=== PATIENT | male | born 1975 | race African-American/Black ===

== ENCOUNTER 2018-05-07 08:23 | Emergency (ER) | payer MEDICAID, OTHER ==
[~2018-05-07] VITALS: Ht 185.4 cm; Wt 108.0 kg
[~2018-05-07 08:23] MED LIST: AMBIEN5 MG ORAL; KEFLEX500 MG ORAL; MEDROL DOSEPAK4 MG ORAL; NKM
[2018-05-07] MEDS ORDERED: TRAMADOL HCL150 MG ORAL (08:35)
--- NOTE | 2018-05-07 09:10 | Emergency Room Report ---
History of Present Illness General Chief Complaint: Lower Extremity Injury Source: Patient Present Illness HPI Patient presents with nontraumatic left ankle pain for greater than one week. He has a strenuous job with climbing up ladders. He's unaware of any injury. There has been swelling there. There is pain when he walks. He denies any fevers, rash or redness weakness. It's worse when he tries to weight-bear. He denies any major medical problems and is not taking any medications for this. Pain rated 8/10, aching, not radiating, worse with weight-bear. No numbness. He is unaware of prior injuries. No calf tenderness, leg edema, dyspnea, hemoptysis. No h/o gout or diuretics. Allergies: Coded Allergies: No Known Allergies (Unverified , 07/09/13) Patient History Past Medical History: see triage record Social History: Denies: smoking Social History Narrative works telecom Reviewed Nursing Documentation: PMH: Agreed; PSxH: Agreed Nursing Documentation-PMH Past Medical History: No Stated History Review of Systems Constitutional: Reports: see HPI Respiratory: Reports: see HPI Cardiovascular: Denies: chest pain Gastrointestinal: Denies: nausea Musculoskeletal: Reports: see HPI Skin: Reports: see HPI Neurological: Reports: see HPI Hematologic/Lymphatic: Denies: blood clots, easy bleeding Physical Exam Vital Signs Date Time Temp Pulse Resp B/P (MAP) Pulse Ox O2 Delivery O2 Flow Rate FiO2 05/07/18 08:28 98.2 68 16 148/98 96 Room Air 98.2 Sp02 EP Interpretation: reviewed, normal General Appearance: well appearing, no apparent distress Head: normocephalic, atraumatic ENT: hearing grossly normal, normal voice Neck: full range of motion, supple Respiratory: no respiratory distress, speaking full sentences Cardiovascular #1: regular rate, rhythm Cardiovascular #2: 2+ dorsalis pedis (L) Gastrointestinal: normal inspection Musculoskeletal: swelling, other - The ankle was not hot. Ligaments are stable. Fifth metatarsal bone is nontender. Neurologic: alert, motor strength/tone normal, sensory intact, normal gait Psychiatric: mood/affect normal Skin: no rash Medical Decision Making Diagnostic Impression: Primary Impression: Ankle pain, left Qualified Codes: M25.572 - Pain in left ankle and joints of left foot Additional Impressions: Osteoarth NOS-ankle Renal insufficiency ER Course Patient presents with nontraumatic left ankle pain. Differential includes gout , pseudogout, unappreciated strain or sprain, osteoarthritis. By my exam septic joint is excluded. X-rays are indicated as well as labs including uric acid and sedimentation rate. The patient will be treated with Motrin. Ankle without fx. Labs with yocasta CBC, sed rate, uric acid. CMP with renal insufficiency. Slightly elevated CK. Discussed labs with patient who states he was told in past about kidney problems. States taking creatine and protein shakes. Improved pain. Sumit applied by RN. Tension and position excellent with some relief. Neurovasc checked by me and normal. Patient stable for outpatient observation and treatment. Labs Test 05/07/18 09:15 White Blood Count 10.7 K/UL (4.8-10.8) Red Blood Count 5.07 M/UL (4.70-6.10) Hemoglobin 15.3 G/DL (14.2-18.0) Hematocrit 45.3 % (42.0-52.0) Mean Corpuscular Volume 89 FL (80-99) Mean Corpuscular Hemoglobin 30.2 PG (27.0-31.0) Mean Corpuscular Hemoglobin Concent 33.8 G/DL (32.0-36.0) Red Cell Distribution Width 10.4 % (11.6-14.8) Platelet Count 213 K/UL (150-450) Mean Platelet Volume 7.9 FL (6.5-10.1) Neutrophils (%) (Auto) 68.6 % (45.0-75.0) Lymphocytes (%) (Auto) 21.5 % (20.0-45.0) Monocytes (%) (Auto) 5.0 % (1.0-10.0) Eosinophils (%) (Auto) 4.3 % (0.0-3.0) Basophils (%) (Auto) 0.7 % (0.0-2.0) Erythrocyte Sedimentation Rate 10 MM/HR (0-15) Urine Color Pale yellow Urine Appearance Clear Urine pH 6 (4.5-8.0) Urine Specific [place] 1.015 (1.005-1.035) Urine Protein 2+ (NEGATIVE) Urine Glucose (UA) Negative (NEGATIVE) Urine Ketones Negative (NEGATIVE) Urine Occult Blood Negative (NEGATIVE) Urine Nitrite Negative (NEGATIVE) Urine Bilirubin Negative (NEGATIVE) Urine Urobilinogen Normal MG/DL (0.0-1.0) Urine Leukocyte Esterase Negative (NEGATIVE) Urine RBC 0-2 /HPF (0 - 0) Urine WBC 0 /HPF (0 - 0) Urine Squamous Epithelial Cells None /LPF (NONE/OCC) Urine Bacteria Occasional /HPF (NONE) Sodium Level 139 MMOL/L (136-145) Potassium Level 3.9 MMOL/L (3.5-5.1) Chloride Level 103 MMOL/L (98-107) Carbon Dioxide Level 30 MMOL/L (21-32) Anion Gap 6 mmol/L (5-15) Blood Urea Nitrogen 25 mg/dL (7-18) Creatinine 1.9 MG/DL (0.55-1.30) Estimat Glomerular Filtration Rate 46.7 mL/min (>60) Glucose Level 100 MG/DL (74-106) Uric Acid 6.6 MG/DL (2.6-7.2) Calcium Level 8.8 MG/DL (8.5-10.1) Total Bilirubin 0.5 MG/DL (0.2-1.0) Aspartate Amino Transf (AST/SGOT) 40 U/L (15-37) Alanine Aminotransferase (ALT/SGPT) 73 U/L (12-78) Alkaline Phosphatase 76 U/L (46-116) Total Creatine Kinase 617 U/L (26-308) Total Protein 7.3 G/DL (6.4-8.2) Albumin 3.6 G/DL (3.4-5.0) Globulin 3.7 g/dL Albumin/Globulin Ratio 1.0 (1.0-2.7) Other X-Ray Diagnostic Results Other X-Ray Diagnostic Results : X-Ray ordered: ankle # of Views/Limited Vs Complete: 3 View Indication: Other EP Interpretation: Yes Interpretation: no dislocation, no soft tissue swelling, no fractures, other - djd Impression: No acute disease Electronically Signed by: Guillermo Newman MD Last Vital Signs Date Time Temp Pulse Resp B/P (MAP) Pulse Ox O2 Delivery O2 Flow Rate FiO2 05/07/18 12:21 98.2 16 148/98 96 Room Air 98.2 05/07/18 08:28 68 Status: improved Disposition: HOME, SELF-CARE Condition: Improved Scripts Ibuprofen* (MOTRIN*) 600 Mg Tablet 600 MG ORAL Q8H PRN for For Pain, #16 TAB 0 Refills Prov: Guillermo Newman M.D. 05/07/18 Acetaminophen (Tylenol) 325 Mg Tablet 650 MG ORAL Q6H PRN for Prn Pain/Headache/Temp > 101, #30 TAB 0 Refills Prov: Guillermo Newman M.D. 05/07/18 Guillermo Newman M.D. May 07, 2018 09:10
[2018-05-07 09:52] LABS: APPEARANCE,URINE CLEAR; BILIRUBIN, URINE NEGATIVE (NEGATIVE); COLOR,URINE PALE YELLOW; GLUCOSE, URINE (UA) NEGATIVE (NEGATIVE); KETONES,URINE NEGATIVE (NEGATIVE); LEUKOCYTE ESTERASE ,URINE NEGATIVE (NEGATIVE); NITRITE,URINE NEGATIVE (NEGATIVE); PH,URINE 6 (4.5-8.0); PROTEIN,URINE 2+ (NEGATIVE); UROBILINOGEN,URINE NORMAL MG/DL (0.0-1.0)
[2018-05-07 09:53] LABS: BASOPHILS % (AUTO) 0.7 % (0.0-2.0); EOSINOPHILS % (AUTO) 4.3 % (0.0-3.0); HEMATOCRIT 45.3 % (42.0-52.0); HEMOGLOBIN 15.3 G/DL (14.2-18.0); LYMPHOCYTES % (AUTO) 21.5 % (20.0-45.0); MEAN CORPUSCULAR VOLUME 89 FL (80-99); NEUTROPHILS % (AUTO) 68.6 % (45.0-75.0); PLATELET COUNT 213 K/UL (150-450); RED BLOOD COUNT 5.07 M/UL (4.70-6.10); RED CELL DISTRIBUTION WIDTH 10.4 % (11.6-14.8); WHITE BLOOD COUNT 10.7 K/UL (4.8-10.8)
[2018-05-07 10:14] LABS: ALANINE AMINOTRANSFERASE 73 U/L (12-78); ALBUMIN 3.6 G/DL (3.4-5.0); ALKALINE PHOSPHATASE 76 U/L (46-116); ANION GAP 6 mmol/L (5-15); ASPARTATE AMINO TRANSFERASE 40 U/L (15-37); BILIRUBIN,TOTAL 0.5 MG/DL (0.2-1.0); BLOOD UREA NITROGEN 25 mg/dL (7-18); CALCIUM 8.8 MG/DL (8.5-10.1); CARBON DIOXIDE 30 MMOL/L (21-32); CHLORIDE 103 MMOL/L (98-107); CREATINE KINASE 617 U/L (26-308); CREATININE 1.9 MG/DL (0.55-1.30); POTASSIUM 3.9 MMOL/L (3.5-5.1); SODIUM 139 MMOL/L (136-145)
--- NOTE | 2018-05-07 10:43 | Diagnostic Imaging Report ---
Indication: Left ankle pain for one week Technique: 3 views of the left ankle Comparison: none Findings: No acute fractures. No dislocations. There is soft tissue swelling over the lateral malleolus. The joint spaces are preserved. There are mild degenerative proliferative changes of the distal tibia. Impression: No acute process
[2018-05-07] MEDS ORDERED: TYLENOL325 MG ORAL (11:18)
[2018-05-07] MEDS ORDERED: IBUPROFEN600 MG ORAL (11:18)
[2018-05-07 12:21] VITALS: BP 148/98
== END 2018-05-07 12:00 | disposition home or self-care (01) ==
LOC: EMR 09:09
DX: M19.072 Primary osteoarthritis, left ankle and foot (principal); N28.9 Disorder of kidney and ureter, unspecified
CPT/HCPCS: 36415; 80053; 81003; 82550; 84550; 85025; 85651; 99283

== ENCOUNTER 2018-10-07 22:05 | Emergency (ER) | payer OTHER ==
[~2018-10-07] VITALS: Ht 185.4 cm; Wt 106.6 kg
[~2018-10-07 22:05] MED LIST changes: +IBUPROFEN600 MG ORAL; +TRAMADOL HCL150 MG ORAL; +TYLENOL325 MG ORAL
[2018-10-07 22:19] VITALS: BP 145/91
[2018-10-07] MEDS ORDERED: Acetaminophen 500mg (ES) tab ORAL ONE (22:30)
--- NOTE | 2018-10-07 22:33 | Emergency Room Report ---
History of Present Illness General Chief Complaint: Pain Source: Patient Present Illness HPI Patient presents with one month of right shoulder pain. In addition to that he has numbness over the thumb and index finger on the back of his hand. This is worsened when he bends his wrist in the ulnar direction. The pain is severe at night and prevents him from sleeping. He's tried taking tramadol however this is hasn't helped. The patient was seen recently with some renal insufficiency. He had this evaluated by his doctors and apparently is tested positive weakly for lupus. 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 He's been advised not to take nonsteroidal anti-inflammatories because of the renal dysfunction. The patient denies any fevers, chills or trauma. There is no chest pain, shortness of breath or cough. No trauma. He does lift weights. Allergies: Coded Allergies: No Known Allergies (Unverified , 07/09/13) Patient History Past Medical History: see triage record Social History: Denies: smoking, alcohol use, drug use Social History Narrative telecommunications Reviewed Nursing Documentation: PMH: Agreed; PSxH: Agreed Nursing Documentation-PMH Past Medical History: No Stated History Review of Systems All Other Systems: negative except mentioned in HPI Physical Exam Vital Signs Date Time Temp Pulse Resp B/P (MAP) Pulse Ox O2 Delivery O2 Flow Rate FiO2 10/07/18 22:06 98.2 78 16 145/91 95 Room Air Sp02 EP Interpretation: reviewed, normal General Appearance: well appearing, no apparent distress, GCS 15 Head: normocephalic Eyes: bilateral eye normal inspection, bilateral eye PERRL ENT: moist mucus membranes Neck: supple Respiratory: lungs clear, normal breath sounds Cardiovascular #1: regular rate, rhythm Cardiovascular #2: 2+ radial (R) Gastrointestinal: normal inspection, normal bowel sounds, non tender, no mass, non-distended Musculoskeletal: back normal, gait/station normal, decreased range of motion - R shoulder, abduction causes pain. No crepetance. Neurologic: alert, oriented x3, motor strength/tone normal, DTRs symmetric, sensory intact - though subjectively R radial nerve area back of hand with altered sensation, normal gait, speech normal Psychiatric: mood/affect normal Skin: normal inspection, warm/dry Medical Decision Making Diagnostic Impression: Primary Impression: Gout Qualified Codes: M10.311 - Gout due to renal impairment, right shoulder Additional Impressions: Radial nerve palsy Qualified Codes: G56.31 - Lesion of radial nerve, right upper limb Renal insufficiency ER Course Patient presents with R shoulder pain several weeks and R hand paresthesia. DDX ; bursitis, tendinitis, gout amongst others. Xray and labs indicated. Will treat with tylenol as unable to give NSAIDs due to h/o renal insufficiency ( will check). Xray normal. Xabs with renal insufficiency, elevated uric acid. Given colchicine and discussed dx and treatment. (Actually, more radial nerve paresthesia. Etiology unclear.) Improved. Patient stable for outpatient observation and treatment. Laboratory Tests Test 10/07/18 23:00 10/07/18 23:09 White Blood Count 12.4 K/UL (4.8-10.8) H Red Blood Count 4.90 M/UL (4.70-6.10) Hemoglobin 15.0 G/DL (14.2-18.0) Hematocrit 41.5 % (42.0-52.0) L Mean Corpuscular Volume 85 FL (80-99) Mean Corpuscular Hemoglobin 30.7 PG (27.0-31.0) Mean Corpuscular Hemoglobin Concent 36.2 G/DL (32.0-36.0) H Red Cell Distribution Width 10.0 % (11.6-14.8) L Platelet Count 163 K/UL (150-450) Mean Platelet Volume 8.6 FL (6.5-10.1) Neutrophils (%) (Auto) 60.4 % (45.0-75.0) Lymphocytes (%) (Auto) 27.5 % (20.0-45.0) Monocytes (%) (Auto) 5.7 % (1.0-10.0) Eosinophils (%) (Auto) 5.1 % (0.0-3.0) H Basophils (%) (Auto) 1.3 % (0.0-2.0) Erythrocyte Sedimentation Rate Pending Sodium Level 140 MMOL/L (136-145) Potassium Level 3.6 MMOL/L (3.5-5.1) Chloride Level 104 MMOL/L (98-107) Carbon Dioxide Level 27 MMOL/L (21-32) Anion Gap 9 mmol/L (5-15) Blood Urea Nitrogen 28 mg/dL (7-18) H Creatinine 1.7 MG/DL (0.55-1.30) H Estimate Glomerular Filtration Rate 53.1 mL/min (>60) Glucose Level 120 MG/DL (74-106) H Uric Acid 8.2 MG/DL (2.6-7.2) H Calcium Level 8.8 MG/DL (8.5-10.1) Total Bilirubin 0.5 MG/DL (0.2-1.0) Aspartate Amino Transferase (AST) 39 U/L (15-37) H Alanine Aminotransferase (ALT) 72 U/L (12-78) Alkaline Phosphatase 74 U/L (46-116) Total Creatine Kinase 664 U/L (26-308) H Total Protein 7.4 G/DL (6.4-8.2) Albumin 3.4 G/DL (3.4-5.0) Globulin 4.0 g/dL Albumin/Globulin Ratio 0.9 (1.0-2.7) L Urine Color Pale yellow Urine Appearance Clear Urine pH 6.5 (4.5-8.0) Urine Specific [place] 1.015 (1.005-1.035) Urine Protein Negative (NEGATIVE) Urine Glucose (UA) Negative (NEGATIVE) Urine Ketones Negative (NEGATIVE) Urine Blood Negative (NEGATIVE) Urine Nitrite Negative (NEGATIVE) Urine Bilirubin Negative (NEGATIVE) Urine Urobilinogen Normal MG/DL (0.0-1.0) Urine Leukocyte Esterase Negative (NEGATIVE) Other X-Ray Diagnostic Results Other X-Ray Diagnostic Results : X-Ray ordered: R shoulder # of Views/Limited Vs Complete: 3 View Indication: Pain EP Interpretation: Yes Interpretation: no dislocation, no soft tissue swelling, no fractures Impression: No acute disease Electronically Signed by: Electronically signed by Guillermo Newman MD Last Vital Signs Date Time Temp Pulse Resp B/P (MAP) Pulse Ox O2 Delivery O2 Flow Rate FiO2 10/08/18 00:31 98.5 87 18 125/79 100 Room Air Status: improved Disposition: HOME, SELF-CARE Condition: Improved Scripts Colchicine (Colchicine) 0.6 Mg Capsule 0.6 MG PO TID, #30 CAP Prov: Guillermo Newman MD 10/08/18 Oxycodone/Acetaminophen 5-325* (PERCOCET 5-325 MG TABLET*) 1 Each Tablet 1 TAB ORAL Q6H PRN for For Pain, #6 TAB Prov: Guillermo Newman MD 10/08/18 Referrals: [facility],REFERRING (PCP) Guillermo Newman MD Oct 07, 2018 22:33
[2018-10-07 23:21] LABS: APPEARANCE,URINE CLEAR; BILIRUBIN, URINE NEGATIVE (NEGATIVE); COLOR,URINE PALE YELLOW; GLUCOSE, URINE (UA) NEGATIVE (NEGATIVE); KETONES,URINE NEGATIVE (NEGATIVE); LEUKOCYTE ESTERASE ,URINE NEGATIVE (NEGATIVE); NITRITE,URINE NEGATIVE (NEGATIVE); PH,URINE 6.5 (4.5-8.0); UROBILINOGEN,URINE NORMAL MG/DL (0.0-1.0)
[2018-10-07 23:21] LABS: BASOPHILS % (AUTO) 1.3 % (0.0-2.0); EOSINOPHILS % (AUTO) 5.1 % (0.0-3.0); HEMATOCRIT 41.5 % (42.0-52.0); LYMPHOCYTES % (AUTO) 27.5 % (20.0-45.0); MEAN CORPUSCULAR VOLUME 85 FL (80-99); MONOCYTES % (AUTO) 5.7 % (1.0-10.0); NEUTROPHILS % (AUTO) 60.4 % (45.0-75.0); PLATELET COUNT 163 K/UL (150-450); WHITE BLOOD COUNT 12.4 K/UL (4.8-10.8)
[2018-10-07 23:23] LABS: PROTEIN,URINE NEGATIVE (NEGATIVE)
[2018-10-07 23:43] LABS: ANION GAP 9 mmol/L (5-15); BLOOD UREA NITROGEN 28 mg/dL (7-18); CALCIUM 8.8 MG/DL (8.5-10.1); CARBON DIOXIDE 27 MMOL/L (21-32); CHLORIDE 104 MMOL/L (98-107); CREATININE 1.7 MG/DL (0.55-1.30); POTASSIUM 3.6 MMOL/L (3.5-5.1); SODIUM 140 MMOL/L (136-145)
[2018-10-07 23:47] LABS: ALANINE AMINOTRANSFERASE 72 U/L (12-78); ALBUMIN 3.4 G/DL (3.4-5.0); ALBUMIN/GLOBULIN RATIO 0.9 (1.0-2.7); ALKALINE PHOSPHATASE 74 U/L (46-116); ASPARTATE AMINO TRANSFERASE 39 U/L (15-37); BILIRUBIN,TOTAL 0.5 MG/DL (0.2-1.0); CREATINE KINASE 664 U/L (26-308)
[2018-10-08] MEDS ORDERED: PERCOCET 5-3251 EACH ORAL (00:19)
[2018-10-08] MEDS ORDERED: COLCHICINE0.6 M1 PO (00:19)
[2018-10-08 00:31] VITALS: BP 125/79
--- NOTE | 2018-10-08 15:31 | Diagnostic Imaging Report ---
Indication: Right shoulder pain Technique: One view of the chest Comparison: none Findings: No acute fractures. No dislocations. The joint spaces are preserved. Impression: Negative
== END 2018-10-08 00:30 | disposition home or self-care (01) ==
LOC: EMR 22:24
DX: M10.3 Gout due to renal impairment (principal); G56.31 Lesion of radial nerve, right upper limb; N28.9 Disorder of kidney and ureter, unspecified
CPT/HCPCS: 36415; 80053; 81003; 82550; 84550; 85025; 85651; 99283

== ENCOUNTER 2018-12-27 08:39 | Emergency (ER) | payer OTHER ==
[~2018-12-27] VITALS: Ht 182.9 cm; Wt 106.6 kg
[~2018-12-27 08:39] MED LIST changes: +COLCHICINE0.6 M1 PO; +PERCOCET 5-3251 EACH ORAL
[2018-12-27] MEDS ORDERED: NKM (08:49)
--- NOTE | 2018-12-27 09:07 | NUR ---
ED Nurse Note: patient came in by him self, AAO x 4, has steady gait, skin is dry warm to touch, and intact, pt. is complaining of high blood preasure, deny any chest pain.
--- NOTE | 2018-12-27 09:08 | Emergency Room Report ---
History of Present Illness General Chief Complaint: Hypertension Source: Patient Present Illness HPI 43-year-old male with a history of diet-controlled hypertension and chronic right knee pain is sent from the pain medicine specialist office because in the triage they noticed his blood pressure was high. Patient reports sometimes he feels a pain and tingling in his left arm and sometimes has headaches, but neither the symptoms are occurring right now or in the past few days even. He denies ever having chest pain. He also denies any weakness, numbness, slurred speech, severe headache, syncope, nausea, blurred vision, any other complaints. He reports that at the pain medicine specialist's office, they took his blood pressure with a cough that did not seem appropriate, and they did it over the sleeves of his shirt as well as his jacket and it was reading 160/120 so they told him to come to the ER. Allergies: Coded Allergies: No Known Allergies (Unverified , 07/09/13) Patient History Past Medical History: see triage record Reviewed Nursing Documentation: PMH: Agreed; PSxH: Agreed Nursing Documentation-PMH Past Medical History: No History, Except For Hx Hypertension: Yes Review of Systems All Other Systems: negative except mentioned in HPI Physical Exam Vital Signs Date Time Temp Pulse Resp B/P (MAP) Pulse Ox O2 Delivery O2 Flow Rate FiO2 12/27/18 08:43 98.1 77 15 167/93 96 Room Air Sp02 EP Interpretation: reviewed, normal General Appearance: no apparent distress, alert, non-toxic Head: normocephalic Eyes: bilateral eye normal inspection, bilateral eye PERRL, bilateral eye EOMI ENT: normal ENT inspection, hearing grossly normal, normal pharynx, no angioedema, normal voice, moist mucus membranes Neck: normal inspection, full range of motion, supple, thyroid normal, no meningismus, supple/symm/no masses Respiratory: chest non-tender, lungs clear, normal breath sounds, no rhonchi, no respiratory distress, no retraction, no accessory muscle use, chest symmetrical, palpation of chest normal Cardiovascular #1: normal peripheral pulses, regular rate, rhythm, no edema, no gallop, no JVD, no murmur, no rub Cardiovascular #2: 2+ radial (R), 2+ radial (L) Gastrointestinal: normal inspection, non tender, soft, no mass, no guarding, no rebound Rectal: deferred Genitourinary: normal inspection, no CVA tenderness Musculoskeletal: back normal, gait/station normal, normal range of motion, non- tender, no calf tenderness Neurologic: alert, responsive, crisis intervention counselor III-XII nml as tested, motor strength/tone normal, sensory intact, cerebellar normal, normal gait, speech normal Psychiatric: judgement/insight normal, memory normal, mood/affect normal - slightly anxious affect, anxious Skin: normal color, no rash, warm/dry, normal turgor Lymphatic: no adenopathy Medical Decision Making Diagnostic Impression: Primary Impression: Hypertension Additional Impression: Anxiety about health ER Course Patient's blood pressure was reportedly 160/120 at another clinic, a pain medicine specialist's office, and now it is 160/90, patient has an anxious affect, did not want to have any anxiety medications, and is here with asymptomatic hypertension. He reports he already has a primary care doctor who he will see tomorrow, and does not want any tests done that are necessary here. His right knee exam is also unremarkable. Will discharge him without any further workup, I have left him on the monitor here and noted him to be in sinus rhythm, with a normal rate, pressure now 150s over 80s, will discharge and have him follow-up with his PMD as he planned. I suspect white coat HTN at this point since he was given a likely inaccurately measured high BP in the pain clinic prior to arrival. Rhythm Strip Diag. Results Rhythm Strip Time: 09:05 EP Interpretation: yes Rate: 72 Rhythm: NSR, no PVC's, no ectopy Last Vital Signs Date Time Temp Pulse Resp B/P (MAP) Pulse Ox O2 Delivery O2 Flow Rate FiO2 12/27/18 08:43 98.1 77 15 167/93 96 Room Air Status: improved Disposition: HOME, SELF-CARE Condition: Stable ANDIE NORMAN M.D Dec 27, 2018 09:08
[2018-12-27 09:14] VITALS: BP 155/87
[2018-12-27 09:20] VITALS: BP 155/83
--- NOTE | 2018-12-27 09:25 | NUR ---
ED Nurse Note: patient was DC, AAO x 4, no pain or discomfort. all belongings were given to the patient. patient was educated, verbalized understanding.
== END 2018-12-27 09:20 | disposition home or self-care (01) ==
LOC: EMR 09:10
DX: I10 Essential (primary) hypertension (principal); F41.9 Anxiety disorder, unspecified; G89.29 Other chronic pain; M25.561 Pain in right knee
CPT/HCPCS: 99282

== ENCOUNTER 2019-03-25 13:19 | Emergency (ER) | payer OTHER ==
[~2019-03-25] VITALS: Ht 182.9 cm; Wt 106.6 kg
[2019-03-25] MEDS ORDERED: UNOBMED (13:25)
--- NOTE | 2019-03-25 13:56 | NUR ---
ED Nurse Note:pt. c/o chronic right knee pain no recent injury reported
--- NOTE | 2019-03-25 14:42 | Diagnostic Imaging Report ---
Indication: Pain Knee pain/trauma 3 views of the right knee were obtained. Findings: There are screws in the distal femur traversing the medial lateral femoral condyles. No acute fractures appreciated. Bones are osteopenic. There is a ossified focus projected over the suprapatellar pouch. Loose body is not excluded. impression: No acute injury. Osteochondroma versus loose body suprapatellar region. Evidence of previous distal femur surgery
[2019-03-25] MEDS ORDERED: ACETAMINOPHEN-1 EAC1 ORAL ×2 (14:44→14:45)
--- NOTE | 2019-03-25 14:44 | Emergency Room Report ---
History of Present Illness General Chief Complaint: Lower Extremity Injury Source: Patient Present Illness HPI 44 year old male presents to the emergency department complaining of localized 8 out of 10 in severity pain to the anterior right knee just proximal to the patella progressive 3 days. Patient reports multiple surgeries in the past status post fractures and meniscal tears. Patient states he has some retained hardware. Patient reports he has been noticing a lot of clicking with bending his knee and on occasion he feels as though his knee gets stuck. Patient denies trauma or fall denies swelling, erythema or warmth. Patient denies bruising. Is exacerbated upon kneeling on his knee or persistent walking. Patient reports some relief with rest. No other modifying factors. Denies instability or paresthesias. Allergies: Coded Allergies: No Known Allergies (Unverified , 03/25/19) Patient History Past Medical History: see triage record Past Surgical History: none Pertinent Family History: none Reviewed Nursing Documentation: PMH: Agreed; PSxH: Agreed Nursing Documentation-PMH Past Medical History: No History, Except For Hx Hypertension: Yes Review of Systems All Other Systems: negative except mentioned in HPI Physical Exam Vital Signs Date Time Temp Pulse Resp B/P (MAP) Pulse Ox O2 Delivery O2 Flow Rate FiO2 03/25/19 13:22 98.2 72 16 96 Room Air Sp02 EP Interpretation: reviewed, normal General Appearance: no apparent distress, alert, GCS 15, non-toxic Head: normocephalic, atraumatic Eyes: bilateral eye normal inspection, bilateral eye PERRL ENT: hearing grossly normal, normal voice Neck: full range of motion Respiratory: chest non-tender, lungs clear, normal breath sounds, speaking full sentences Cardiovascular #1: regular rate, rhythm Musculoskeletal: gait/station normal, normal range of motion, non-tender, other - TTP to [ ] , no obvious swelling, echymosis, or deformity noted. there is no increased laxity to a valgus or varus stress. anterior and posterior drawer sign is negative. surgical scars noted. no erythema or warmth. Neurologic: alert, oriented x3, responsive, motor strength/tone normal, sensory intact, speech normal, grossly normal Psychiatric: judgement/insight normal Skin: normal color, no rash, warm/dry, well hydrated Medical Decision Making PA Attestation Dr. Leon is my supervising Physician whom patient management has been discussed with. Diagnostic Impression: Primary Impression: Knee pain, right Qualified Codes: M25.561 - Pain in right knee Additional Impression: History of knee surgery ER Course 44 year old male presents to the emergency department complaining of localized 8 out of 10 in severity pain to the anterior right knee just proximal to the patella progressive 3 days. Patient reports multiple surgeries in the past status post fractures and meniscal tears. Patient states he has some retained hardware. Patient reports he has been noticing a lot of clicking with bending his knee and on occasion he feels as though his knee gets stuck. Patient denies trauma or fall denies swelling, erythema or warmth. Patient denies bruising. Is exacerbated upon kneeling on his knee or persistent walking. Patient reports some relief with rest. No other modifying factors. Denies instability or paresthesias. Ddx considered but are not limited to Fracture, dislocation, contusion, septic joint, pseudo gout, gout, cellulitis, effusion , Sprain/Strain/Spasm, ligamental injury just to name a few. Vital signs: are WNL, pt. is afebrile H&PE are most consistent with knee strain/ overuse. ORDERS: X-ray Right knee complete 3 view - negative for fx, Dislocation, or significant soft tissue injury ED INTERVENTIONS: none required at this time. -I do not identify an emergent condition at this time. With current presentation , pt. is stable for close outpatient follow up and conservative treatment. D/ w pt. to return promptly to ED with worsening or new symptoms.- Pt. verbalizes' understanding and agreement with proposed treatment plan.proposed treatment plan. DISCHARGE: At this time pt. is stable for d/c to home. Will provide printed patient care instructions, and any necessary prescriptions. Care plan and follow up instructions have been discussed with the patient prior to discharge. Other X-Ray Diagnostic Results Other X-Ray Diagnostic Results : X-Ray ordered: Right knee # of Views/Limited Vs Complete: 3 View Indication: Pain EP Interpretation: Yes MAITE Xray: Interpretation reviewed, by supervising MD, and agrees with findings. Interpretation: no dislocation, no soft tissue swelling, no fractures Impression: No acute disease Electronically Signed by: Brii Allred PA-C Last Vital Signs Date Time Temp Pulse Resp B/P (MAP) Pulse Ox O2 Delivery O2 Flow Rate FiO2 03/25/19 13:22 98.2 72 16 96 Room Air Status: improved Disposition: HOME, SELF-CARE Condition: Stable Scripts Tramadol Hcl* (ULTRAM*) 50 Mg Tablet 50 MG ORAL Q6H PRN for For Pain, #10 TAB 0 Refills Prov: Brii Allred 03/25/19 Patient Instructions: KNEE PAIN, Uncertain Cause, Knee Pain, [id number] Additional Instructions: Take medications as directed. Follow up with a Primary Care Provider in 3-5 days, even if your symptoms have resolved. --Please review list of primary care clinics, if you do not already have a primary care provider Return sooner to ED if new symptoms occur, or current symptoms become worse. Do not drink alcohol, drive, or operate heavy machinery while taking Tylenol # 3 as this may cause drowsiness. - Please note that this Emergency Department Report was dictated using [employer] duplic[employer] technology software, occasionally this can lead to erroneous entry secondary to interpretation by the dictation equipment. Brii Allred March 25, 2019 14:44
[2019-03-25] MEDS ORDERED: TRAMADOL HCL50 MG ORAL (14:57)
[2019-03-25 15:00] VITALS: BP 146/88
--- NOTE | 2019-03-25 15:01 | NUR ---
ER DISCHARGE NOTE: Patient is cleared to be discharged per ERMD, pt is aox4, on room air, with stable vital signs. pt was given dc and prescription instructions, pt was able to verbalize understanding, pt is able to ambulate with steady gait. pt took all belongings.
== END 2019-03-25 15:45 | disposition home or self-care (01) ==
LOC: EMR 14:40
DX: M25.561 Pain in right knee (principal); Z98.890 Other specified postprocedural states; I10 Essential (primary) hypertension
CPT/HCPCS: 99283

== ENCOUNTER 2019-07-16 16:01 | Emergency (ER) | payer OTHER ==
[~2019-07-16] VITALS: Ht 185.4 cm; Wt 108.9 kg
[~2019-07-16 16:01] MED LIST changes: +ACETAMINOPHEN-1 EAC1 ORAL; +TRAMADOL HCL50 MG ORAL; +UNOBMED
[2019-07-16 16:40] VITALS: BP 158/103
--- NOTE | 2019-07-16 18:21 | Emergency Room Report ---
History of Present Illness General Chief Complaint: Pain Source: Patient Present Illness HPI 44-year-old male presents to the emergency department complaining of localized 8 out of 10 severity burning/xeig-lwu-zargwxn/paresthesia pain sensation to the medial aspect of the left foot just below the ankle. Patient denies trauma or fall he denies erythema, swelling or warmth. He denies previous injury to this extremity. Patient reports some kidney condition but is unable to detail official diagnosis. Patient denies fevers, chills, being immune compromised or having a history of diabetes. He denies skin color changes or temperature changes to the affected extremity. 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 Denies numbness tingling or loss of sensation or gross motor movements of the extremities, incontinence of bowel or bladder. Denies CP, Palpitations, LOC, AMS, dizziness, Changes in Vision, weakness or a sudden severe headache. He denies low back pain or history of back problems. Denies calf pain or knee pain. Allergies: Coded Allergies: No Known Allergies (Unverified , 03/25/19) Patient History Past Medical History: see triage record Past Surgical History: none Pertinent Family History: none Reviewed Nursing Documentation: PMH: Agreed; PSxH: Agreed Nursing Documentation-PMH Past Medical History: No History, Except For Hx Hypertension: Yes Review of Systems All Other Systems: negative except mentioned in HPI Physical Exam Vital Signs Date Time Temp Pulse Resp B/P (MAP) Pulse Ox O2 Delivery O2 Flow Rate FiO2 07/16/19 16:13 98.4 78 17 158/103 (121) 99 Room Air Sp02 EP Interpretation: reviewed, normal General Appearance: no apparent distress, alert, GCS 15, non-toxic Head: normocephalic, atraumatic Eyes: bilateral eye normal inspection, bilateral eye PERRL ENT: hearing grossly normal, normal voice Neck: full range of motion Respiratory: lungs clear, normal breath sounds, speaking full sentences Cardiovascular #1: regular rate, rhythm, no edema, normal capillary refill Cardiovascular #2: 2+ dorsalis pedis (R), 2+ dorsalis pedis (L) Gastrointestinal: normal bowel sounds, non tender, soft Rectal: deferred Genitourinary: normal inspection Musculoskeletal: back normal, gait/station normal, normal range of motion, tender - Patient has tenderness to mild palpation in a very localized area of the medial aspect of the left foot just below the ankle. No obvious deformities no erythema no warmth no swelling no tenderness to superficial touch. No bruises. Neurologic: alert, oriented x3, responsive, motor strength/tone normal, sensory intact, normal gait, speech normal, grossly normal Psychiatric: judgement/insight normal Skin: no rash, other - no bruises, no erythema, no warmth. Lymphatic: no adenopathy Medical Decision Making PA Attestation Dr. Merino is my supervising Physician whom patient management has been discussed with. Diagnostic Impression: Primary Impression: Ankle pain, left Qualified Codes: M25.572 - Pain in left ankle and joints of left foot Additional Impression: Encounter for medical screening examination ER Course 44-year-old male presents to the emergency department complaining of localized 8 out of 10 severity burning/wvem-bpl-bjhtjtn/paresthesia pain sensation to the medial aspect of the left foot just below the ankle. Patient denies trauma or fall he denies erythema, swelling or warmth. He denies previous injury to this extremity. Patient reports some kidney condition but is unable to detail official diagnosis. Patient denies fevers, chills, being immune compromised or having a history of diabetes. He denies skin color changes or temperature changes to the affected extremity. 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 Denies numbness tingling or loss of sensation or gross motor movements of the extremities, incontinence of bowel or bladder. Denies CP, Palpitations, LOC, AMS, dizziness, Changes in Vision, weakness or a sudden severe headache. He denies low back pain or history of back problems. Denies calf pain or knee pain. Ddx considered but are not limited to Fracture, dislocation, contusion, Sprain/ Strain/Spasm, neuropathy, radiculopathy, paresthesia, DVT, Gout/pseudogout, Infection, septic joint. Vital signs: are WNL, pt. is afebrile H&PE are most consistent with nonemergent ankle pain/paresthesia. No evidence of infection, deformity representing possible fractures, no history of trauma or suggestion of strain/sprain. Circulation is intact. ORDERS: - X-ray's not warranted at this time both myself and the patient collaboratively decided that there is no suspicion for fractures. ED INTERVENTIONS: -IM Decadron - pt. unable to take NSAIDS due to possible renal disease. -Tylenol p.o. -I do not identify an emergent condition at this time. With current presentation , pt. is stable for close outpatient follow up and conservative treatment. D/ w pt. to return promptly to ED with worsening or new symptoms.- Pt. verbalizes' understanding and agreement with proposed treatment plan.proposed treatment plan. DISCHARGE: At this time pt. is stable for d/c to home. Will provide printed patient care instructions, and any necessary prescriptions. Care plan and follow up instructions have been discussed with the patient prior to discharge. Last Vital Signs Date Time Temp Pulse Resp B/P (MAP) Pulse Ox O2 Delivery O2 Flow Rate FiO2 07/16/19 16:40 98.4 88 17 158/103 99 Room Air Disposition: HOME, SELF-CARE Condition: Stable Scripts Diclofenac Sodium (Diclofenac Sodium) 100 Gm Gel..gram. 1 APPLIC TP Q6HR, #100 GM Prov: Brii Allred 07/16/19 Gabapentin* (GABAPENTIN*) 300 Mg Capsule 300 MG ORAL THREE TIMES A DAY, #30 CAP 0 Refills Prov: Biri Allred 07/16/19 Patient Instructions: Ankle Pain, Neuropathic Pain Additional Instructions: ~ ~ An emergent medical condition has not been identified based on this patients presentation, exam and any necessary testing/imaging. The patient is determined to be stable for outpatient follow-up and management of symptoms by a primary care provider. Take medications as directed. Follow up with a Primary Care Provider in 3-5 days, even if your symptoms have resolved. Return sooner to ED if new symptoms occur, or current symptoms become worse. - Please note that this Emergency Department Report was dictated using [employer] software, occasionally this can lead to erroneous entry secondary to interpretation by the dictation equipment. Brii Allred Jul 16, 2019 18:21
[2019-07-16] MEDS ORDERED: GABAPENTIN300 MG ORAL (18:22)
[2019-07-16] MEDS ORDERED: DICLOFENAC SOD100 GM TP (18:22)
[2019-07-16 18:30] VITALS: BP 130/90
[2019-07-16] MEDS ORDERED: Dexamethasone 4mg/ml vial IM ONE (18:30)
== END 2019-07-16 18:30 | disposition home or self-care (01) ==
LOC: EMR 16:50
DX: M25.572 Pain in left ankle and joints of left foot (principal); I10 Essential (primary) hypertension
CPT/HCPCS: 96372; 99283; J1100